=== PATIENT | male | born 1970 | race Caucasian/White ===

== ENCOUNTER 2017-02-10 03:06 | Emergency (ER) | payer MEDICAID ==
[~2017-02-10] VITALS: Ht 190.5 cm; Wt 140.2 kg
[~2017-02-10 03:06] MED LIST: CEPH500C PO; CPR500T PO; DOXY100C PO; HYDR-2890 PO; HYDR1TAB PO; NO HOME MEDS; SULF1TAB38 PO
--- OUTSIDE RECORDS SUMMARY | 2017-02-10 03:14 | XMS REPORT | Continuity of Care Document ---
Author Author [facility] Organization [facility] Address Unknown Phone Unavailable Allergies Active Description Code Type Severity Reaction Onset Reported/Identified Relationship to Patient Clinical Status Yes morphine [id number] Drug Allergy Unknown N/A 01/07/2014 Medications Problems Date Dx Coded Attending Type Code Diagnosis Diagnosed By 01/28/2012 Ot 682.8 CELLULITIS, SITE NEC 01/07/2014 LEANNE BECKWITH DO Ot 300.00 ANXIETY STATE NOS 01/07/2014 LEANNE BECKWITH DO Ot 786.50 CHEST PAIN NOS 01/07/2014 LEANNE BECKWITH DO Ot 786.52 PAINFUL RESPIRATION 10/01/2015 SUZY MARQUEZ DO Ot A69.20 LYME DISEASE, UNSPECIFIED 10/03/2015 SUZY MARQUEZ DO Ot A69.20 LYME DISEASE, UNSPECIFIED Procedures Results Encounters ACCT No. Visit Date/Time Discharge Status Pt. Type Provider Facility Loc./Unit Complaint [id number] 10/01/2015 07:47:00 2015 08:09:00 DIS Emergency SUZY MARQUEZ DO [facility] ER [id number] 01/07/2014 13:08:00 2013 16:18:00 DIS Emergency LEANNE BECKWITH DO [facility] ER [id number] 01/28/2012 16:26:00 Document Registration
--- OUTSIDE RECORDS SUMMARY | 2017-02-10 03:14 | XMS REPORT ---
Author Author MARCO ANTONIO CLAUDIO [facility] eClinicalWorks Address Unknown Phone Unavailable Care Team Providers Care Channel Man Name Role Phone MARCO ANTONIO CLAUDIO CP Unavailable Allergies, Adverse Reactions, Alerts Substance Reaction Event Type N.K.D.A. Info Not Available Non Drug Allergy Problems Problem Type Condition ICD-9 Code Onset Dates Condition Status Assessment Elevated blood pressure 796.2 Active Assessment Dysuria 788.1 Active Medications No Known Medications Procedures Procedure Coding System Code Date Office Visit, New Pt., Level 2 CPT-4 94548 Dec 13, 2014 URINALYSIS, AUTO, W/O SCOPE CPT-4 39765 Dec 13, 2014 Vital Signs Date/Time: Dec 13, 2014 Temperature 98.7 F Weight 308.1 lbs Height 75 in BMI 38.51 Index Blood Pressure Diastolic 96 mmHg Blood Pressure Systolic 138 mmHg Cardiac Monitoring Heart Rate 104 bpm Results Name Result Date Reference Range Unit Abnormality Flag UA LONG DIP (IN HOUSE) Summary Purpose eClinicalWorks Submission
[2017-02-10 03:39] LABS: BASOPHILS % (AUTO) 0 % (0-10); EOSINOPHILS # (AUTO) 0.6 10^3/uL (0.0-0.3); EOSINOPHILS % (AUTO) 6 % (0-10); LYMPHOCYTES # (AUTO) 2.6 X 10^3 (1.0-4.0); LYMPHOCYTES % (AUTO) 27 % (12-44); MEAN CORPUSCULAR HEMOGLOBIN 31 PG (25-34); MEAN CORPUSCULAR HGB CONC 35 G/DL (32-36); MEAN CORPUSCULAR VOLUME 90 FL (80-99); MONOCYTES % (AUTO) 10 % (0-12); NEUTROPHILS # (AUTO) 5.6 X 10^3 (1.8-7.8); NEUTROPHILS % (AUTO) 57 % (42-75); PLATELET COUNT 272 10^3/uL (130-400); RED BLOOD COUNT 5.04 10^6/uL (4.35-5.85); RED CELL DISTRIBUTION WIDTH 13.8 % (10.0-14.5); WHITE BLOOD COUNT 9.7 10^3/uL (4.3-11.0)
--- NOTE | 2017-02-10 03:53 | ED General ---
General Chief Complaint: Neurological Problems Stated Complaint: NUMBNESS OF RT HAND,TOES ON LEFT FOOT Nursing Triage Note: intermittant finger/toe numbness x4 days. alternating locations between right/left side. also c/o rash to torso/arms Nursing Sepsis Screen: No Definite Risk Source of Information: Patient Exam Limitations: No Limitations History of Present Illness Time Seen by Provider: 03:13 Initial Comments This 46-year-old gentleman presents to the emergency room with waxing and waning paresthesias of all 4 extremities. Symptoms have been present for 3 or 4 days. On the left the paresthesias affecting the first and second fingers of the first and third toes. Paresthesias on the left have now nearly resolved. He has persistent paresthesias on the right that effect the first through third fingers and the first and third toe. The paresthesias on the right were much more extensive yesterday and involved much of the right side of the body. They have now improved to their present state. Symptoms are worse when lying flat. He denies any neck pain. He had headaches last week but no headaches in the past few days. He denies any tick bites. He has a history of Lyme's disease and a history of neck injury as a child. His primary care provider is [facility]. Patient denies any drug or alcohol use. Patient also reports a pruritic rash from the neck to the lower torso and extending down his arms. He has been taking Benadryl but the rash has not resolved. Allergies and Home Medications Allergies Coded Allergies: morphine (Verified Allergy, Unknown, 01/07/14) Home Medications Prednisone 20 Mg Tab, 20 MG PO BID, #8 Prescribed by: LARRY COATS on 02/10/17 0539 Constitutional: no symptoms reported EENTM: no symptoms reported Respiratory: no symptoms reported Cardiovascular: no symptoms reported Gastrointestinal: no symptoms reported Genitourinary: no symptoms reported Musculoskeletal: no symptoms reported Skin: no symptoms reported Psychiatric/Neurological: See HPI Hematologic/Lymphatic: No Symptoms Reported Past Rpgpcrn-Ykbpmr-Wljeic Hx Patient Social History Alcohol Use: Occasionally Uses Alcohol Beverage of Choice: Beer Recreational Drug Use: No Smoking Status: Current Everyday Smoker Type Used: Cigarettes 2nd Hand Smoke Exposure: Yes Recent Foreign Travel: No Contact w/Someone Who Travel: No Recent Infectious Disease Expo: No Recent Hopitalizations: No Immunizations Up To Date Tetanus Booster (TDap): Unknown Seasonal Allergies Seasonal Allergies: No Surgeries History of Surgeries: No Respiratory History of Respiratory Disorde: No Cardiovascular History of Cardiac Disorders: Yes Cardiac Disorders: Hypertension Neurological History of Neurological Disord: Yes (history of Lyme's disease) Reproductive System Hx Reproductive Disorders: No Genitourinary History of Genitourinary Disor: No Gastrointestinal History of Gastrointestinal Di: No Musculoskeletal History of Musculoskeletal Dis: Yes (neck injury as a child) Endocrine History of Endocrine Disorders: No HEENT History of HEENT Disorders: No Cancer History of Cancer: No Psychosocial History of Psychiatric Problem: Yes Behavioral Health Disorders: Anxiety Integumentary History of Skin or Integumenta: No Blood Transfusions History of Blood Disorders: No Physical Exam Vital Signs Vital Sign - Last 12Hours 02/10/17 03:17 Temp 97.2 Pulse 92 Resp 18 B/P (MAP) 156/103 Pulse Ox 95 O2 Delivery Room Air Capillary Refill : Less Than 3 Seconds General Appearance: No Apparent Distress, WD/WN HEENT: PERRL/EOMI, Normal ENT Inspection, Other (White lesion, possibly condyloma, on the anterior uvula) Neck: Normal Inspection Respiratory: Lungs Clear, Normal Breath Sounds, No Accessory Muscle Use, No Respiratory Distress Cardiovascular: Regular Rate, Rhythm, No Edema, No Murmur Extremity: Normal Inspection, No Pedal Edema Neurologic/Psychiatric: Alert, Oriented x3, Normal Mood/Affect, culinary specialist II-XII Norm as Tested, Other (sensation of numbness or paresthesia in the distribution described in history of present illness) Skin: Normal Color, Warm/Dry, Rash (maculopapular rash on the arms, neck, and trunk. Excoriation of the right antecubital fossa) Progress/Results/Core Measures Results/Orders Lab Results Laboratory Tests Test 02/10/17 03:30 Range/Units White Blood Count 9.7 4.3-11.0 10^3/uL Red Blood Count 5.04 4.35-5.85 10^6/uL Hemoglobin 15.6 13.3-17.7 G/DL Hematocrit 45 40-54 % Mean Corpuscular Volume 90 80-99 FL Mean Corpuscular Hemoglobin 31 25-34 PG Mean Corpuscular Hemoglobin Concent 35 32-36 G/DL Red Cell Distribution Width 13.8 10.0-14.5 % Platelet Count 272 130-400 10^3/uL Mean Platelet Volume 11.0 H 7.4-10.4 FL Neutrophils (%) (Auto) 57 42-75 % Lymphocytes (%) (Auto) 27 12-44 % Monocytes (%) (Auto) 10 0-12 % Eosinophils (%) (Auto) 6 0-10 % Basophils (%) (Auto) 0 0-10 % Neutrophils # (Auto) 5.6 1.8-7.8 X 10^3 Lymphocytes # (Auto) 2.6 1.0-4.0 X 10^3 Monocytes # (Auto) 1.0 0.0-1.0 X 10^3 Eosinophils # (Auto) 0.6 H 0.0-0.3 10^3/uL Basophils # (Auto) 0.0 0.0-0.1 10^3/uL Sodium Level 137 135-145 MMOL/L Potassium Level 3.9 3.6-5.0 MMOL/L Chloride Level 106 98-107 MMOL/L Carbon Dioxide Level 21 21-32 MMOL/L Anion Gap 10 5-14 MMOL/L Blood Urea Nitrogen 13 7-18 MG/DL Creatinine 0.76 0.60-1.30 MG/DL Estimat Glomerular Filtration Rate > 60 BUN/Creatinine Ratio 17 Glucose Level 112 H 70-105 MG/DL Calcium Level 9.1 8.5-10.1 MG/DL Magnesium Level 2.3 1.8-2.4 MG/DL Total Bilirubin 0.4 0.1-1.0 MG/DL Aspartate Amino Transf (AST/SGOT) 14 5-34 U/L Alanine Aminotransferase (ALT/SGPT) 23 0-55 U/L Alkaline Phosphatase 77 40-136 U/L Total Protein 7.0 6.4-8.2 GM/DL Albumin 3.9 3.2-4.5 GM/DL My Orders Orders - LARRY KATHLEEN MD Cbc With Automated Diff (02/10/17 03:27) Comprehensive Metabolic Panel (02/10/17 03:27) Magnesium (02/10/17 03:27) Saline Lock/Iv-Start (02/10/17 03:27) Ct Head/Cervical Spine Wo (02/10/17 04:20) Vital Signs/I&O Vital Sign - Last 12Hours 02/10/17 02/10/17 03:17 05:49 Temp 97.2 97.0 Pulse 92 86 Resp 18 18 B/P (MAP) 156/103 Pulse Ox 95 97 O2 Delivery Room Air Room Air Blood Pressure Mean: 120 Progress Note : Time: 04:21 Progress Note Lab workup was unremarkable. I discussed further evaluation with CT scan. Patient was given the option to perform a CT scan now versus following up with his primary care provider and inquiring about MRI of the head and C-spine. Patient wishes to proceed with CT scan now. Risks and benefits including specificity and radiation exposure were discussed. Diagnostic Imaging Diagonstic Imaging: CT Plain Films/CT/US/NM/MRI: c-spine, head Comments CT head and cervical spine viewed by me. [facility] report reviewed. There were findings of disc space narrowing at C5-C6 and C6-C7. Disc osteophyte complexes seen at C3-C4, C5-C6, and C6-C7. There is a degree of central stenosis suggested at C5-C6. Some neuroforaminal encroachment is suggested at C3-C4 on the left. Departure Impression Impression: Primary Impression: Paresthesia of upper and lower extremities of both sides Additional Impressions: Oral lesion Spinal stenosis Qualified Codes: M48.02 - Spinal stenosis, cervical region Pruritic rash Disposition: HOME, SELF-CARE Condition: Stable Departure-Patient Inst. Decision time for Depature: 05:39 Referrals: [facility] (PCP/Family) Primary Care Physician Patient Instructions: Spinal Stenosis Add. Discharge Instructions: Follow-up with [facility] as soon as possible. Call today for an appointment. You need to follow-up on the spinal stenosis noted on your CT scan as well as the lesion noted in your throat. I recommend prompt referral to an ENT physician such as Dr. Mina for further evaluation of the oral lesion. Complete the steroids as prescribed which will hopefully reduce the symptoms from your spinal stenosis. If symptoms worsen, especially if you develop weakness in the legs or difficulty controlling her bowels or bladder, please return to the emergency room immediately. All discharge instructions reviewed with patient and/or family. Voiced understanding. Scripts Prednisone (Prednisone) 20 Mg Tab 20 MG PO BID, #8 TAB Prov: LARRY KATHLEEN MD 02/10/17 Work/School Note: Work Release Form Date Seen in the Emergency Department: Feb 10, 2017 Return to Work: Feb 11, 2017 Restrictions: No Restrictions Copy Copies To 1: KIARA RAY JOSHUA T MD Feb 10, 2017 03:53
[2017-02-10 03:57] LABS: ALANINE AMINOTRANSFERASE 23 U/L (0-55); ALBUMIN 3.9 GM/DL (3.2-4.5); ANION GAP 10 MMOL/L (5-14); ASPARTATE AMINO TRANSFERASE 14 U/L (5-34); BILIRUBIN,TOTAL 0.4 MG/DL (0.1-1.0); BLOOD UREA NITROGEN 13 MG/DL (7-18); BUN/CREATININE RATIO 17; CALCIUM 9.1 MG/DL (8.5-10.1); CARBON DIOXIDE 21 MMOL/L (21-32); CHLORIDE 106 MMOL/L (98-107); CREATININE SERUM 0.76 MG/DL (0.60-1.30); GFR ESTIMATED > 60; GLUCOSE 112 MG/DL (70-105); MAGNESIUM 2.3 MG/DL (1.8-2.4); POTASSIUM 3.9 MMOL/L (3.6-5.0); SODIUM 137 MMOL/L (135-145)
[2017-02-10] MEDS ORDERED: PRD20T PO (05:39)
[2017-02-10 05:49] VITALS: BP 152/92
--- NOTE | 2017-02-10 07:08 | Diagnostic Imaging Report ---
PROCEDURE: CT head and CT cervical spine without contrast. TECHNIQUE: Multiple contiguous axial images were obtained through the brain and cervical spine without the use of intravenous contrast. Sagittal and coronal reformations through the cervical spine were then performed. INDICATION: Numbness to the fingers and toes. COMPARISON: None. CT head: Ventricles normal in size, shape and position. There is no midline shift or mass effect. There is no hemorrhage or evidence acute ischemia. No cerebral edema is identified. There is no extra-axial fluid collection. The bony calvarium, visualized paranasal sinuses and mastoids are normal. IMPRESSION: Negative CT head. CT cervical spine: Alignment is normal. There is no subluxation or fracture. There is no paraspinous mass. Minimal to mild degenerative changes seen throughout the disc spaces and facet joints. There is no osseous lesion. IMPRESSION: Minimal to mild diffuse degenerative disc disease and facet joint arthropathy. No traumatic malalignment or fracture. Dictated by: Dictated on workstation # [id number]
[2017-02-11] MEDS ORDERED: NAPR500T PO (12:31)
[2017-02-11] MEDS ORDERED: PRD20T PO (12:31)
[2017-02-11] MEDS ORDERED: CYCL10TA9 PO (12:31)
== END 2017-02-10 05:45 | disposition home or self-care (01) ==
LOC: EDUNIT# 03:06 → ER 03:10
DX: R20.2 Paresthesia of skin (principal); K13.79 Other lesions of oral mucosa; M48.02 Spinal stenosis, cervical region; L29.9 Pruritus, unspecified; F41.9 Anxiety disorder, unspecified; I10 Essential (primary) hypertension; F17.210 Nicotine dependence, cigarettes, uncomplicated
CPT/HCPCS: 36415; 70450; 72125; 80053; 83735; 85025

== ENCOUNTER 2017-02-11 11:32 | Emergency (ER) | payer MEDICAID ==
[~2017-02-11] VITALS: Ht 190.5 cm; Wt 140.2 kg
[~2017-02-11 11:32] MED LIST changes: +PRD20T PO
--- NOTE | 2017-02-11 12:24 | ED Back Pain ---
General Chief Complaint: General Problems/Pain Stated Complaint: PAIN IN RIGHT ARM,NUMBNESS IN LEFT FINGERS Nursing Triage Note: worsening pain since yesterday Nursing Sepsis Screen: No Definite Risk Source of Information: Patient Exam Limitations: No Limitations History of Present Illness Time Seen by Provider: 12:12 Initial Comments Patient presents to ER with a chief complaint of back pain. He says if you're couple days ago and diagnosed with spinal stenosis on CT. Says he was doing okay except his car broke down and he had to walk 18 blocks and after walking long distance he started rinsing excruciating pain and sciatic pain that radiated down to the level of his knee and also in his neck and having some numbness in his fingers on the right side. He has been taking ibuprofen with little effect at home. He decided to come in today because he could not get into the clinic until early February. He had a rash and was seen outpatient and started on prednisone yesterday 40 mg daily for 4 days. He smokes one pack per day and does not use alcohol. He denies any saddle anesthesia, incontinence, urinary hesitancy, lower extremity numbness, weakness, falls. He's had no recent trauma to his back. He says his rash is already clearing up and almost gone. Allergies and Home Medications Allergies Coded Allergies: morphine (Verified Allergy, Unknown, 01/07/14) Home Medications Prednisone 20 Mg Tab, 20 MG PO BID, #8 Prescribed by: LARRY COATS on 02/10/17 0539 Constitutional: No chills, No fever EENTM: No hearing loss, No ear pain Respiratory: No cough, No short of breath Cardiovascular: No chest pain, No palpitations Gastrointestinal: No nausea, No vomiting Genitourinary: No discharge, No dysuria, No incontinence Musculoskeletal: see HPI, back pain, No gout, No joint pain Skin: No pruritus, No rash Psychiatric/Neurological: Denies Headache, Denies Numbness, Denies Paresthesia Past Oggkbax-Atafei-Ssjaeq Hx Patient Social History Alcohol Use: Occasionally Uses Number of Drinks Today: AA Alcohol Beverage of Choice: Beer Recreational Drug Use: Yes (CLEAN 9 YRS, STATES STILL USES ETOH) Type Used: Cigarettes 2nd Hand Smoke Exposure: Yes Recent Foreign Travel: No Contact w/Someone Who Travel: No Recent Infectious Disease Expo: No Recent Hopitalizations: No Physical Abuse: No Sexual Abuse: No Immunizations Up To Date Tetanus Booster (TDap): Unknown Seasonal Allergies Seasonal Allergies: No Surgeries History of Surgeries: No Respiratory History of Respiratory Disorde: No Cardiovascular History of Cardiac Disorders: Yes Cardiac Disorders: Hypertension Neurological History of Neurological Disord: Yes (history of Lyme's disease) Reproductive System Hx Reproductive Disorders: No Genitourinary History of Genitourinary Disor: No Gastrointestinal History of Gastrointestinal Di: No Musculoskeletal History of Musculoskeletal Dis: Yes (neck injury as a child) Endocrine History of Endocrine Disorders: No HEENT History of HEENT Disorders: No Cancer History of Cancer: No Psychosocial History of Psychiatric Problem: Yes Behavioral Health Disorders: Anxiety Suicide Risk Score: 0 Integumentary History of Skin or Integumenta: No Blood Transfusions History of Blood Disorders: No Physical Exam Vital Signs Vital Sign - Last 12Hours 02/11/17 11:45 Temp 99.0 Pulse 84 Resp 20 B/P (MAP) 142/100 Pulse Ox 97 O2 Delivery Room Air Capillary Refill : Less Than 3 Seconds General Appearance: No Apparent Distress, WD/WN Neck: Full Range of Motion, Normal Inspection, Supple, Tender Lateral (right) Cardiovascular: Regular Rate, Rhythm, No Edema, No Murmur Respiratory: Chest Non Tender, Lungs Clear Back: Normal Inspection, No CVA Tenderness, Vertebral Tenderness (neck and upper thoracic as well as lumbar right side) Extremity: Normal Capillary Refill, Normal Inspection, Normal Range of Motion, No Pedal Edema Neurologic/Psychiatric: Alert, Oriented x3, No Motor/Sensory Deficits, Normal Mood/Affect Skin: Warm/Dry, Rash (faint red rash over chest, macular) Progress/Results/Core Measures Results/Orders Vital Signs/I&O Vital Sign - Last 12Hours 02/11/17 11:45 Temp 99.0 Pulse 84 Resp 20 B/P (MAP) 142/100 Pulse Ox 97 O2 Delivery Room Air Blood Pressure Mean: 114 Progress Note : Time: 12:27 Progress Note No radiologic evidence of cervical stenosis in the record however we will encourage him to continue taking his prednisone extend that out to 6 days instead of 4 and get him started on some prescription strength Naprosyn so he can follow-up. We'll also give him a back brace. Patient was satisfied with this plan and plans to follow-up with his primary care physician. Diagnostic Imaging Diagonstic Imaging: CT Comments NAME: SHAWNA MCGEE [facility] REC#: [id number] PHYSICIAN: LARRY KATHLEEN MD CC: LARRY KATHLEEN MD; JUANPABLO HARRINGTON Page 2 of 2 RADIOLOGY REPORT [facility]. [place], [place] CC: LARRY KATHLEEN MD; JUANPABLO HARRINGTON Page 1 of 2 RADIOLOGY REPORT NAME: SHAWNA MCGEE [facility] REC#: [id number] PT STATUS: DEP ER : 1970 PHYSICIAN: LARRY KATHLEEN MD ADMIT DATE: 02/10/17/ER Signed Date of Exam: 02/10/17 CT HEAD/CERVICAL SPINE WO PROCEDURE: CT head and CT cervical spine without contrast. TECHNIQUE: Multiple contiguous axial images were obtained through the brain and cervical spine without the use of intravenous contrast. Sagittal and coronal reformations through the cervical spine were then performed. INDICATION: Numbness to the fingers and toes. COMPARISON: None. CT head: Ventricles normal in size, shape and position. There is no midline shift or mass effect. There is no hemorrhage or evidence acute ischemia. No cerebral edema is identified. There is no extra-axial fluid collection. The bony calvarium, visualized paranasal sinuses and mastoids are normal. IMPRESSION: Negative CT head. CT cervical spine: Alignment is normal. There is no subluxation or fracture. There is no paraspinous mass. Minimal to mild degenerative changes seen throughout the disc spaces and facet joints. There is no osseous lesion. IMPRESSION: Minimal to mild diffuse degenerative disc disease and facet joint arthropathy. No traumatic malalignment or fracture. Dictated by: Dictated on workstation # [id number] Dict: 02/10/17 0656 Trans: 02/10/17 1014 Interpreted by: JUANPABLO HARRINGTON Electronically signed by: JUANPABLO HARRINGTON 02/10/17 1014 Reviewed: Reviewed by Me Departure Impression Impression: Primary Impression: Back pain Qualified Codes: M54.41 - Lumbago with sciatica, right side Disposition: 01 HOME, SELF-CARE Condition: Stable Departure-Patient Inst. Decision time for Depature: 12:29 Referrals: [facility] (PCP/Family) Primary Care Physician Patient Instructions: Low Back Pain (DC) Add. Discharge Instructions: Continue taking the prednisone 40 mg a day for a full 6 days. Use the Naprosyn 2 capsules twice a day [id number]. If you're still having breakthrough pain you can use Tylenol 1000 mg every 8 hours. Heating pads and ice as well as creams such as icy hot or Biofreeze are very helpful. Wear the back brace every day that it helps. Keep your follow-up appointment with your primary care physician. If you're having spasming of the muscles or your back and you can use the cyclobenzaprine every 8 hours as needed. If you feel drowsy after taking this you can cut the tablet in half. Do not mix this tablet with alcoholism may cause you to be too drowsy. All discharge instructions reviewed with patient and/or family. Voiced understanding. Scripts Naproxen (Naprosyn) 500 Mg Tablet 500 MG PO BID for 14 Days, #28 TAB 0 Refills Prov: SHALONDA LISA 02/11/17 Prednisone (Prednisone) 20 Mg Tab 40 MG PO DAILY for 2 Days, #4 TAB 0 Refills Prov: SHALONDA LISA 02/11/17 Cyclobenzaprine HCl (Cyclobenzaprine HCl) 10 Mg Tablet 10 MG PO Q8H Y for SPASMS, #15 TAB 0 Refills Prov: SHALONDA LISA 02/11/17 Work/School Note: Work Release Form Date Seen in the Emergency Department: Feb 11, 2017 Return to Work: Feb 12, 2017 Restrictions: No Restrictions Copy Copies To 1: KIARA RAY TITUS J Feb 11, 2017 12:24
[2017-02-11] MEDS ORDERED: PRD20T PO (12:31)
[2017-02-11] MEDS ORDERED: NAPR500T PO (12:31)
[2017-02-11] MEDS ORDERED: CYCL10TA9 PO (12:31)
[2017-02-11] MEDS ORDERED: NAPROXEN 250 MG (NAPROSYN) TABLET PO ONE (13:00)
[2017-02-11] MEDS ORDERED: KETOROLAC 30 MG/ML VIAL IVP ONE (13:00)
[2017-02-11 13:10] VITALS: BP 142/100
== END 2017-02-11 13:09 | disposition home or self-care (01) ==
LOC: EDUNIT# 11:32 → ER 11:34
DX: M54.2 Cervicalgia (principal); M54.6 Pain in thoracic spine; M54.5 Low back pain; I10 Essential (primary) hypertension; F41.9 Anxiety disorder, unspecified; Z87.39 Personal history of other diseases of the musculoskeletal system and connective tissue
CPT/HCPCS: 96374; 99281

== ENCOUNTER → 2017-03-03 | Outpatient (CLI) | payer MEDICAID ==
[~2017-03-03] MED LIST changes: +CYCL10TA9 PO; +NAPR500T PO
--- NOTE | 2017-03-03 17:09 | Diagnostic Imaging Report ---
PROCEDURE: MRI lumbar spine. TECHNIQUE: Multiplanar, multisequence MRI of the lumbar spine was performed without contrast. INDICATION: Bilateral leg and bilateral arm numbness. FINDINGS: The alignment of the posterior spinal line is satisfactory. There are preserved vertebral body heights. There is severe disc height loss at the L3/4 level, and disc desiccation around the mid to lower lumbar spine is seen. There is prominent bone marrow edema at L3/4 vertebrae. The cauda equina and conus medullaris appear grossly unremarkable. T12/L1: There is no disc herniation, no spinal canal or foraminal stenosis. L1/2: No disc herniation. There is mild facet hypertrophy. No spinal canal or lateral recess stenosis. No foraminal narrowing. L2/3: No disc herniation. There is tvbk-sn-uyxrsxqo facet hypertrophy. No central canal or lateral recess stenosis. No foraminal stenosis. L3/4: There is a diffuse disc bulge, and there is moderate facet hypertrophy seen. There is moderate spinal canal stenosis reducing the AP dimension of the spinal canal to 8.4 mm centrally and resulting in bilateral lateral recess stenosis, moderate on the right and moderate to severe on the left. The foramina demonstrate bilateral moderate stenosis, worse on the left side with foraminal disc component and osteophyte from the adjacent facet encroaching upon the foramen. L4/5: There is a diffuse disc bulge and moderate facet arthropathy at this level. There is biyx-yz-fgnyxund spinal canal stenosis with reduced AP dimension of the central canal to 8.7 mm and bilateral lateral recess stenosis, moderate on the left and mild to moderate on the right side. The foramina demonstrate bilateral stenosis of a moderate degree, more prominent on the left. L5/S1: There is no significant disc bulge. Mild facet hypertrophy. No central canal, lateral recess, or foraminal stenosis of significance is seen. IMPRESSION: There is spinal canal stenosis at the L3/4 and L4/5 levels related to a combination of disc bulge and facet arthropathy as described. There is also foraminal stenosis. Dictated by: Dictated on workstation # [id number]
== END ==
LOC: RAD 16:13
PROVIDERS: ATTEND Internal Medicine
DX: M51.26 Other intervertebral disc displacement, lumbar region (principal); M48.061 Spinal stenosis, lumbar region without neurogenic claudication
CPT/HCPCS: 72148

== ENCOUNTER 2022-03-06 08:44 | Emergency (ER) | payer MEDICAID ==
[~2022-03-06] VITALS: Ht 190 cm; Wt 126.0 kg
[~2022-03-06 08:44] MED LIST changes: +CYCL10TA25 PO; -CYCL10TA9 PO; +NAPR-1071 PO; -NAPR500T PO
[2022-03-06] MEDS ORDERED: KETOROLAC 30 MG/ML VIAL IVP STA (09:23)
[2022-03-06 09:30] LABS: BASOPHILS # (AUTO) 0.1 10^3/uL (0.0-0.1); BASOPHILS % (AUTO) 1 % (0-10); EOSINOPHILS # (AUTO) 0.6 10^3/uL (0.0-0.3); EOSINOPHILS % (AUTO) 6 % (0-10); HEMATOCRIT 48 % (40-54); HEMOGLOBIN 16.5 g/dL (13.3-17.7); LYMPHOCYTES # (AUTO) 2.1 10^3/uL (1.0-4.0); LYMPHOCYTES % (AUTO) 22 % (12-44); MEAN CORPUSCULAR HEMOGLOBIN 31 pg (25-34); MEAN CORPUSCULAR HGB CONC 34 g/dL (32-36); MEAN CORPUSCULAR VOLUME 90 fL (80-99); MEAN PLATELET VOLUME 11.5 fL (9.0-12.2); MONOCYTES # (AUTO) 0.7 10^3/uL (0.0-1.0); MONOCYTES % (AUTO) 7 % (0-12); NEUTROPHILS # (AUTO) 6.3 10^3/uL (1.8-7.8); NEUTROPHILS % (AUTO) 65 % (42-75); PLATELET COUNT 291 10^3/uL (130-400); WHITE BLOOD COUNT 9.6 10^3/uL (4.3-11.0)
[2022-03-06 09:36] LABS: CHLORIDE 108 MMOL/L (98-107); POTASSIUM 4.1 MMOL/L (3.6-5.0); SODIUM 137 MMOL/L (135-145)
[2022-03-06 09:37] LABS: CALCIUM 9.3 MG/DL (8.5-10.1)
[2022-03-06 09:38] LABS: GLUCOSE 101 MG/DL (70-105)
[2022-03-06 09:40] LABS: BILIRUBIN,TOTAL 0.3 MG/DL (0.1-1.0); CARBON DIOXIDE 20 MMOL/L (21-32)
[2022-03-06 09:42] LABS: ALKALINE PHOSPHATASE 67 U/L (40-136); GFR ESTIMATED 113
[2022-03-06 09:43] LABS: BUN/CREATININE RATIO 13
[2022-03-06 09:45] LABS: ALANINE AMINOTRANSFERASE 13 U/L (0-55)
--- NOTE | 2022-03-06 09:49 | Diagnostic Imaging Report ---
PROCEDURE: CT head without contrast. TECHNIQUE: Multiple contiguous axial images were obtained through the brain without the use of intravenous contrast. Auto Exposure Controls were utilized during the CT exam to meet ALARA standards for radiation dose reduction. INDICATION: Headache. CORRELATION is made with prior head CT from 02/10/2017. The ventricular size and sulcal pattern are stable. No sulcal effacement or midline shift is identified. No acute intra-axial or extra-axial hemorrhage is detected. Cisterns are patent. Visualized paranasal sinuses demonstrate mucosal thickening of ethmoid air cells as well as the sphenoid sinus. Mastoids are well-aerated. IMPRESSION: No acute intracranial process is detected. Dictated by: Dictated on workstation # [id number]
--- NOTE | 2022-03-06 10:10 | ED General ---
General Chief Complaint: Respiratory Problems Stated Complaint: EKG READINGS FROM [facility]| HEADACHE Nursing Triage Note: PT AMB TO RM 7 PT SENT FROM [facility], PT STATES HAS HAD [place]ILL[place] 10/27 FOR 2 DAYS HAD CHEST PAIN COUPLE DAYS AGO. SOA UPON AMB. [facility] STATES ABN EKG THIS AM Source of Information: Patient Exam Limitations: No Limitations History of Present Illness Date Seen by Provider: Mar 06, 2022 Time Seen by Provider: 09:15 Initial Comments Here from [facility] with report of headache and apparently had chest pain a couple days ago. They did an EKG the was concerning to them no report given. EKG from clinic shows questionable interventricular conduction delay but otherwise no evidence of ST elevation NV. Patient reports that problems started after he hit his head a few days ago on the same area where he has a cyst. States that he hit his head quite hard. This did not cause loss of consciousness but he has had had persistent headache since. He tried BC powder last night and yesterday and states that that helped for about an hour and then pain returned. Does report that he had some chest pain that he is having a hard time describing 2 days ago but that has resolved and he has not had sequela since. Did have some shortness of breath the day when he was assisting a person who had fallen in the parking lot. That has resolved as well. Denies pain in his legs. Denies balance problems. Does have photophobia. Denies sweating. Timing/Duration: 2-3 Days, Changing Over Time Severity: Moderate Associated Systoms: Chest Pain; No Cough, No Diaphoresis, No Fever/Chills; Headaches; No Nausea/Vomiting, No Shortness of Air, No Weakness Allergies and Home Medications Allergies Coded Allergies: No Known Drug Allergies (Unverified , 03/06/22) Patient Home Medication List Home Medication List Reviewed: Yes Cyclobenzaprine HCl (Cyclobenzaprine HCl) 10 Mg Tablet, 10 MG PO Q8H PRN for SPASMS Prescribed by: SHALONDA LISA on 02/11/17 1231 Naproxen (Naprosyn) 500 Mg Tablet, 500 MG PO BID Prescribed by: SHALONDA LISA on 02/11/17 1231 Prednisone (Prednisone) 20 Mg Tab, 20 MG PO BID Prescribed by: LARRY COATS on 02/10/17 0539 Prednisone (Prednisone) 20 Mg Tab, 40 MG PO DAILY Prescribed by: SHALONDA LISA on 02/11/17 1231 Review of Systems Review of Systems Constitutional: No chills, No fever EENTM: other (Photophobia); No nose congestion, No throat pain Respiratory: No cough, No short of breath Cardiovascular: chest pain; No edema Gastrointestinal: No abdominal pain, No nausea, No vomiting Genitourinary: No dysuria, No pain Musculoskeletal: No back pain, No neck pain Skin: no symptoms reported All Other Systems Reviewed Negative Unless Noted: Yes Past Hmnkato-Rhjhfi-Kddvyv Hx Patient Social History Tobacco Use?: Yes Tobacco type used: Cigarettes Smoking Status: Current Everyday Smoker Substance use?: Yes Substance type: Marijuana Substance frequency: Daily Alcohol Use?: No Immunizations Up To Date Tetanus Booster (TDap): Unknown Seasonal Allergies Seasonal Allergies: No Past Medical History Surgery/Hospitalization HX: DENIES MEDICAL HX Surgeries: No Respiratory: No Cardiac: Yes Hypertension Neurological: Yes (history of Lyme's disease) Reproductive Disorders: No Genitourinary: No Gastrointestinal: No Musculoskeletal: Yes (neck injury as a child) Endocrine: No HEENT: No Cancer: No Psychosocial: Yes Anxiety Integumentary: No Blood Disorders: No Family Medical History Reviewed Nursing Family Hx Physical Exam Vital Signs Vital Signs - First Documented 03/06/22 08:50 Temp 36.3 Pulse 80 Resp 16 B/P (MAP) 161/106 (124) Pulse Ox 97 Capillary Refill : Less Than 3 Seconds Height, Weight, BMI Height: 6'3" Weight: 309lbs. oz. [id number]; 34.00 BMI Method:Stated General Appearance: No Apparent Distress, WD/WN HEENT: PERRL/EOMI, Pharynx Normal Neck: Non Tender, Supple Respiratory: Lungs Clear, Normal Breath Sounds Cardiovascular: Regular Rate, Rhythm, No Murmur Gastrointestinal: Non Tender, Soft Back: Normal Inspection, No CVA Tenderness, No Vertebral Tenderness Extremity: Normal Range of Motion, Non Tender Neurologic/Psychiatric: Alert, Oriented x3, Normal Mood/Affect Skin: Warm/Dry, Other (Small cyst noted to the top of the head consistent with sebaceous cyst but does not look inflamed currently.) Progress/Results/Core Measures Suspected Sepsis SIRS Temperature: Pulse: 80 Respiratory Rate: 16 Laboratory Tests 03/06/22 09:00: White Blood Count 9.6 Blood Pressure 161 /106 Mean: 124 Laboratory Tests 03/06/22 09:00: Creatinine 0.70, Platelet Count 291, Total Bilirubin 0.3 Results/Orders Lab Results Laboratory Tests Test 03/06/22 09:00 Range/Units White Blood Count 9.6 4.3-11.0 10^3/uL Red Blood Count 5.35 4.30-5.52 10^6/uL Hemoglobin 16.5 13.3-17.7 g/dL Hematocrit 48 40-54 % Mean Corpuscular Volume 90 80-99 fL Mean Corpuscular Hemoglobin 31 25-34 pg Mean Corpuscular Hemoglobin Concent 34 32-36 g/dL Red Cell Distribution Width 13.9 10.0-14.5 % Platelet Count 291 130-400 10^3/uL Mean Platelet Volume 11.5 9.0-12.2 fL Immature Granulocyte % (Auto) 0 % Neutrophils (%) (Auto) 65 42-75 % Lymphocytes (%) (Auto) 22 12-44 % Monocytes (%) (Auto) 7 0-12 % Eosinophils (%) (Auto) 6 0-10 % Basophils (%) (Auto) 1 0-10 % Neutrophils # (Auto) 6.3 1.8-7.8 10^3/uL Lymphocytes # (Auto) 2.1 1.0-4.0 10^3/uL Monocytes # (Auto) 0.7 0.0-1.0 10^3/uL Eosinophils # (Auto) 0.6 H 0.0-0.3 10^3/uL Basophils # (Auto) 0.1 0.0-0.1 10^3/uL Immature Granulocyte # (Auto) 0.0 0.0-0.1 10^3/uL Sodium Level 137 135-145 MMOL/L Potassium Level 4.1 3.6-5.0 MMOL/L Chloride Level 108 H 98-107 MMOL/L Carbon Dioxide Level 20 L 21-32 MMOL/L Anion Gap 9 5-14 MMOL/L Blood Urea Nitrogen 9 7-18 MG/DL Creatinine 0.70 0.60-1.30 MG/DL Estimat Glomerular Filtration Rate 113 BUN/Creatinine Ratio 13 Glucose Level 101 70-105 MG/DL Calcium Level 9.3 8.5-10.1 MG/DL Corrected Calcium 9.3 8.5-10.1 MG/DL Total Bilirubin 0.3 0.1-1.0 MG/DL Aspartate Amino Transf (AST/SGOT) 11 5-34 U/L Alanine Aminotransferase (ALT/SGPT) 13 0-55 U/L Alkaline Phosphatase 67 40-136 U/L Troponin I < 0.028 <0.028 NG/ML Total Protein 7.0 6.4-8.2 GM/DL Albumin 4.0 3.2-4.5 GM/DL My Orders Orders - CHAVA DUMONT MD Ekg Tracing (03/06/22 08:49) Ct Head Wo (03/06/22 09:23) Ed Iv/Invasive Line Start (03/06/22:23) Cbc With Automated Diff (03/06/22:) Comprehensive Metabolic Panel (03/06/22:) Troponin I [place] (03/06/22:) Ketorolac Injection (Toradol Injection) (03/06/22:23) Chest 1 View, Ap/Pa Only (03/06/22 10:01) Acetaminophen Tablet (Tylenol Tablet) (03/06/22 10:15) Medications Given in ED Current Medications Medications Dose Ordered Sig/Jeff Route Start Time Stop Time Status Last Admin Dose Admin Acetaminophen 1,000 mg ONCE ONCE PO 03/06/22 10:15 03/06/22 10:16 DC 03/06/22 10:12 1,000 MG Vital Signs/I&O 03/06/22 08:50 Temp 36.3 Pulse 80 Resp 16 B/P (MAP) 161/106 (124) Pulse Ox 97 Capillary Refill : Less Than 3 Seconds Blood Pressure Mean: 124 Progress Note : Progress Note Seen and evaluated. We will get CT of the head due to worsening headache after head injury. We will also check some basic labs due to concerns from clinic regarding abnormal EKG. Our EKG here is normal. She is not having chest pain and has not had that for couple of days. Toradol 30 mg IV for headache ordered. Monitor patient. 1005: Pending chest x-ray CT of the head is negative for acute intracranial injury. Labs are nonconcerning and troponin is negative. Acetaminophen 1 g p.o. ordered. Monitor patient. 1119: No acute findings on chest x-ray. Patient still has headache but no significant cardiac abnormalities noted. I do believe he is suffering from concussion. I did discuss with him regarding the cyst on the scalp to follow-up with the surgeon which she was appreciative of and we will give him follow-up names. No indica tion for further evaluation currently and no indication for admission. Discharged home with return precautions. Patient verbalized understanding instructions and agreement with plan. ECG Initial ECG Impression Date: Mar 06, 2022 Initial ECG Impression Time: 08:53 Initial ECG Rate: 71 Initial ECG Rhythm: Normal Sinus Initial ECG Intervals: Normal Initial ECG Impression: Normal Initial ECG Comparisson: No Previous ECG Available Comment Sinus rhythm with normal axis. No evidence of ST elevation NV. Interpreted by me. Diagnostic Imaging Diagonstic Imaging: CT Plain Films/CT/US/NM/MRI: head Comments [facility] [place] [place] NAME: SHAWNA MCGEE [id number] REC#: [id number] PT STATUS: REG ER : 1970 PHYSICIAN: CHAVA DUMONT MD ADMIT DATE: 03/06/22/ER Draft Date of Exam:03/06/22 CT HEAD WO PROCEDURE: CT head without contrast. TECHNIQUE: Multiple contiguous axial images were obtained through the brain without the use of intravenous contrast. Auto Exposure Controls were utilized during the CT exam to meet ALARA standards for radiation dose reduction. INDICATION: Headache. CORRELATION is made with prior head CT from 02/10/2017. The ventricular size and sulcal pattern are stable. No sulcal effacement or midline shift is identified. No acute intra-axial or extra-axial hemorrhage is detected. Cisterns are patent. Visualized paranasal sinuses demonstrate mucosal thickening of ethmoid air cells as well as the sphenoid sinus. Mastoids are well-aerated. IMPRESSION: No acute intracranial process is detected. Dictated on workstation # [id number] Dict: 03/06/2247 Trans: 03/06/22 0949 [facility] [id number] Interpreted by: DEBBIE WELCH MD Electronically signed by: Reviewed: Reviewed by Me Diagonstic Imaging: Xray Plain Films/CT/US/NM/MRI: chest Comments [facility] [place] NAME: SHAWNA MCGEE [facility] REC#: [id number] PT STATUS: REG ER : 1970 PHYSICIAN: CHAVA DUMONT MD ADMIT DATE: 03/06/22/ER Signed Date of Exam:03/06/22 CHEST 1 VIEW, AP/PA ONLY Indication: Chest pain and cough x2 days Portable chest 9:59 AM Heart size and pulmonary vascularity are normal. Lungs are clear. There are no effusions or pneumothoraces. IMPRESSION: Negative chest Dictated by: Dictated on workstation # [id number] Dict: 03/06/22 1026 Trans: 03/06/22 1026 TCB [id number] Interpreted by: CHAVA SCHNEIDER MD Electronically signed by: CHAVA SCHNEIDER MD 03/06/22 1026 Departure Impression Primary Impression: Concussion Qualified Codes: S06.0X0A - Concussion without loss of consciousness, initial encounter Additional Impression: Headache due to trauma Qualified Codes: G44.319 - Acute post-traumatic headache, not intractable Disposition: 01 HOME, SELF-CARE Condition: Stable Departure-Patient Inst. Decision time for Depature: 11:21 [place]: [facility] [place] Primary Care Physician MARKUS FIGUEROA BRETT D DO Patient Instructions: Chest Pain (DC), Concussion, Adult ED Add. Discharge Instructions: All discharge instructions reviewed with patient and/or family. Voiced understanding. You may follow-up with Dr. Figueroa or Dr. Moore for the cyst on her scalp. Call their office for appointment. Follow-up with your doctor for recheck and further evaluation regarding the chest pain as you may need further testing for your heart including possible stress test. For the concussion, rest is very important. You may take Tylenol/acetaminophen 1000 mg every 6-8 hours as needed for pain. You may take ibuprofen 600 mg every 8 hours as needed for pain. Return for worse pain, fever, vomiting, weakness, breathing problems or other concerns as needed. Copy Copies To 1: TYRESE ENG MD, TIMOTHY D MD Mar 06, 2022 10:10
[2022-03-06] MEDS ORDERED: ACETAMINOPHEN 500 MG TAB (TYLENOL) PO ONE (10:15)
--- NOTE | 2022-03-06 10:28 | Diagnostic Imaging Report ---
Indication: Chest pain and cough x2 days Portable chest 9:59 AM Heart size and pulmonary vascularity are normal. Lungs are clear. There are no effusions or pneumothoraces. IMPRESSION: Negative chest Dictated by: Dictated on workstation # [id number]
[2022-03-06 11:28] VITALS: BP 150/82
== END 2022-03-06 11:28 | disposition home or self-care (01) ==
LOC: EDUNIT# 08:44 → ER 08:47
DX: S06.0X0A Concussion without loss of consciousness, initial encounter (principal); F17.210 Nicotine dependence, cigarettes, uncomplicated; Z28.310 Unvaccinated for COVID-19; W22.8XXA Striking against or struck by other objects, initial encounter
CPT/HCPCS: 36415; 70450; 71045; 80053; 84484; 85025; 93005